=== PATIENT | female | born 1980 | race African-American/Black ===

== ENCOUNTER → 2023-10-17 09:11 | Outpatient (REF) | payer OTHER, SELFPAY | LOC: HWWDC 09:11 | PROVIDERS: ATTENDING PHYSICIAN Nurse Practitioner | DX: Z12.31 Encounter for screening mammogram for malignant neoplasm of breast (principal) | CPT/HCPCS: 77063; 77067 ==

== ENCOUNTER → 2023-11-19 13:10 | Outpatient (REF) | payer OTHER, SELFPAY | LOC: WDC 13:10 | PROVIDERS: ATTENDING PHYSICIAN Nurse Practitioner | DX: R92.333 Mammographic heterogeneous density, bilateral breasts (principal) | CPT/HCPCS: 76641 ==

== ENCOUNTER 2024-04-05 16:01 | Emergency (ER) | payer OTHER, SELFPAY ==
[2024-04-05 16:17] VITALS: BP 153/71
[2024-04-05 16:41] LABS: Urine Albumin Negative (Neg - Trace); Urine Bilirubin Negative (Negative); Urine Character Clear (Clear); Urine Color Yellow; Urine Glucose Negative (Negative); Urine Ketone Negative (Negative); Urine Leukocyte Negative (Negative); Urine Nitrite Negative (Negative); Urine Occult Blood Negative (Negative); Urine Specific Gravity 1.005 (<1.030); Urine Urobilinogen Negative (Neg - 1+)
[2024-04-05 16:46] LABS: % Basophils 0.5 % (0-2); % Eosinophils 2.9 % (0-6); % Immature Granulocytes 0.2 % (0-0.5); % Lymphocytes 28.8 % (20.5-51.1); % Monocytes 6.4 % (1.7-9.3); % Neutrophils 61.2 % (42.2-75.2); Absolute Eosinophils 0.2 10^3/uL (0-0.7); Absolute Lymphocytes 1.7 10^3/uL (1.2-3.4); Absolute Monocytes 0.4 10^3/uL (0.1-0.6); Absolute Neutrophils 3.5 10^3/uL (1.4-6.5); Hematocrit 37.2 % (37.0-47.0); Hemoglobin 12.5 g/dL (12.0-16.0); Mean Corp Hgb Conc. 33.6 g/dL (33.0-37.0); Mean Corpuscular Hgb 29.3 pg (27.0-31.0); Mean Corpuscular Volume 87.1 fL (81.0-99.0); Mean Platelet Volume 9.6 fL (7.4-10.4); Nucleated Red Blood Cells % 0 %; Platelet Count 257 10^3/uL (130-400); Red Blood Cell Count 4.27 10^6/uL (4.20-5.40); Red Cell Dist. Width 12.7 % (11.5-14.5); White Blood Cell Count 5.8 10^3/uL (4.8-10.8)
[2024-04-05 16:58] LABS: HCG, Serum Qualitative Screen Negative
[2024-04-05 17:00] LABS: ALT (SGPT) 15 U/L (0-35); AST (SGOT) 24 U/L (14-36); Albumin 4.7 g/dl (3.5-5.0); Alkaline Phosphatase 51 U/L (38-126); Blood Urea Nitrogen 10 mg/dl (7-17); Calcium 9.7 mg/dl (8.4-10.2); Carbon Dioxide 23 mmol/L (22-30); Chloride 105 mmol/L (98-107); Glucose 93 mg/dl (70-99); Potassium 4.3 mmol/L (3.5-5.1); Sodium 141 mmol/L (135-145); Total Bilirubin 0.7 mg/dl (0.2-1.3); Total Protein 7.5 g/dl (6.3-8.2); eGFR > 60.00
[2024-04-05 17:01] LABS: Lipase 293 U/L (23-300)
--- NOTE | 2024-04-05 18:49 | ED.GENMED ---
History of Present Illness
General
Chief Complaint: Abdominal Pain
Source: patient
Exam Limitations: none
Time Seen by Provider: 04/05/24 18:05
History of Present Illness
History of Present Illness:
This is a 43 year old female that comes in with c/o right sided abd pain. States that this started about 10:30am and she thought it was gas. States that the pain continued to get worse throughout the day. States that she tried a heating pad and this
didn't help. Then she tried crackers with peanut better and this didn't help. States that the pain is just above her navel and over to the right. States that she has not appetite. Denies any fever, chills, chest pain, SOB, nausea, vomiting,
diarrhea, headache, dizziness, urinary burning.
Past History
Past History
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
ED Past Surgical History: None
Social History
Tobacco: Non-smoker
Alcohol: Occasional
Personal:
Living: with family
Review of Systems
Review of Systems
All Other Systems: ROS reviewed and negative except as documented in HPI and ROS
Constitutional: Reports no symptoms; Denies fever or chills
EENT: Reports no symptoms
Respiratory: Reports no symptoms; Denies cough or trouble breathing
Cardiac: Reports no symptoms; Denies chest pain
ABD/GI: Reports abdominal pain; Denies nausea, vomiting or diarrhea
: Reports no symptoms; Denies dysuria, frequency or urgency
Musculoskeletal: Reports no symptoms
Skin: Reports no symptoms
Neurological: Reports no symptoms; Denies dizzy or headache
Psychiatric: Reports no symptoms
Phy Exam
General Physical Exam
General Presentation: mild distress
General age: appears stated age
General Skin: warm and dry
General Habitus: normal
General Mental: alert
General Hydration: dry mucous membranes
ENT Exam
ENT Exam: TM's normal, pharynx normal and neck supple
Eye Exam
Eye Exam: EOMI
Cardiovascular Exam
Cardiovascular Exam: regular rate/rhythm, no edema, no murmur and normal peripheral pulses
Pulmonary Exam
Pulmonary Exam: lungs clear, no respiratory distress, no rales, chest non tender, no crackles, no rhonchi, no wheezing and no cough
Gastrointestinal Exam
Gastrointestinal Exam: normal bowel sounds, soft, no organomegaly, no pulsatile mass, non distended and tender (right lower abd tenderness with palpation)
Musculoskeletal Exam
Musculoskeletal Exam: full ROM and no edema
Skin Exam
Skin Exam: normal color, warm/dry, no rash and no petechia
Psychiatric Exam
Psychiatric Exam: normal mood/affect
Course
Orders/Labs/Results
Orders:
Orders
04/05/24 16:21
Test Result ONCE
04/05/24 16:29
Complete Blood Count/With Diff Urgent
Comprehensive Metabolic Panel Urgent
HCG, Serum Qualitative Screen Urgent
Lipase Urgent
04/05/24 16:31
Urinalysis Reflex To Culture Urgent
Date Specimen was Collected: 04/05/24
Time Specimen was Collected: 16:21
04/05/24 18:48
CT Abd/pel W Iv And Oral Contr Urgent
Comment:
Reason For Exam: rIGHT LOWER ABD PAIN
0.9% Sodium Chloride 1000 ml [Nss] 1,000 ml IV BOLUS
Iohexol [Omnipaque] See Protocol PO NOW STA
Ketorolac [Toradol] 30 mg IV NOW STA
04/05/24 18:53
US Pelvis Only (non-obstetric) Urgent
Comment:
Reason For Exam: Right lower abd pain
04/05/24 18:[address] Non Medication Order As Directed
Physician Order:
Above order entered?: Yes
04/05/24 23:29
Pantoprazole [Protonix IV] 40 mg IV NOW STA
Sucralfate Suspension [Carafate Suspension] 1 gm PO NOW STA
04/05/24 16:29
04/05/24 16:29
Labs unremarkable. HCG negative. Urine negative for infection. Lipase normal at 293
Vital Signs
Initial and Last Documented VS:
Initial Vital Signs
Temp Pulse Resp BP Pulse Ox
98.5 F 78 16 153/71 98
04/05/24 16:17 04/05/24 16:17 04/05/24 16:17 04/05/24 16:17 04/05/24 16:17
Last Documented Vital Signs
Temp Pulse Resp BP Pulse Ox
98.5 F 59 18 129/69 98
04/05/24 16:17 04/05/24 22:44 04/05/24 22:44 04/05/24 22:44 04/05/24 16:17
MDM/Problems Addressed
Differential Diagnosis Includes:
ruptured ovarian cyst. Ovarian torsion. Appendicitis.
MDM/Problems Addressed:
This is a 43 year old female that comes in with c/o right sided abd pain that started about 10:30am and has continued to get worse.
Will check labs, US pelvic and CT scan to r/o appendicitis.
Back into see patient. Explained that her blood work is normal along with her Ultrasound. CT shows that there is a Gastritis in the bottom of the stomach. Will place patient on Protonix and Carafate. Patient to follow up with the family doctor.
Return with any concerns.
Chronic conditions affecting care:
History of ovarian cyst
Acute Exacerbation and/or Progression of Chronic Illness:
NA
*Radiology
Radiology exam reviewed: radiology read reviewed (US-NO sonographic evidence for abnormality in the uterus or ovaries. CT-Small hiatal hernia. Moderate circumferential wall thickening in the gastric antrum suspicious for gastritis. Small number of
hepatic cysts. )
*Pulse Oximetry
Patient hypoxic: no
*EKG
Interpreted by ED Provider?: NA
Rate: EKG- N/A
*Director Of Nursing Interpretation
Rate: Director Of Nursing- N/A
*Critical Care Note
Total Time (30-74mins, 75-104mins- exclusive of procedures): Not Applicable
ED Attending Note
-
Portions of this chart may have been created with voice recognition software.� Occasional wrong word or��sound alike� substitutions may have occurred due to the inherent limitations of voice recognition software.
Discharge Plan
Departure
Patient Disposition: Home (Routine Discharge)
Date of Disposition: 04/05/24
Time of Disposition: 23:44
Patient with high blood pressure during this ER visit?: No
Condition: Good
Covid-19: Not Applicable
Discharge Problem:
Gastritis
Instructions: Gastritis (DC)
Prescriptions:
New
sucralfate [Carafate] 1 gram tablet
1 g PO ACHS Qty: 40 0RF
Rx Instructions:
Dissolve in 2tsp of water and drink. 30min-1hour before meals and HS
pantoprazole [Protonix] 40 mg tablet,delayed release (DR/EC)
40 mg PO DAILY Qty: 30 0RF
Referrals:
Lucrecia Tuttle, [Family Provider] - Call in 1-3 days for appt
Activity Restrictions/Additional Instructions:
As discussed, your blood work is normal along with your ultrasound. Your CT scan shows that you have gastritis at the base of the stomach. You have had 2 prescriptions sent to your Pharmacy. The first is Protonix which you take once daily. The
second is for Carafate which you will dissolve in 2 tsp of water and drink. Please take this 30min to 1 hour before meals and at bedtime. Follow up with the family doctor for recheck. IF YOU HAVE INCREASED OR CHANGING PAIN, OR YOU HAVE ANY OTHER
CONCERNS PLEASE RETUR TO THE EMERGENCY ROOM.
Interventions
Interventions:
*Risk Screen - Suicide Last Done: 04/05/24 16:17
*General Assessment Last Done: 04/05/24 21:04
*Neglect/Abuse Screening Last Done: 04/05/24 16:17
ME-[id number]-[id number] Assessment Last Done: 04/05/24 21:04
Discharge Date and Time
Print Language: TELUGU
[2024-04-05] MEDS: TORADOL 30 MG IV (19:05)
[2024-04-05] MEDS: OMNIPAQUE 50 ML PO (19:05)
[2024-04-05] MEDS: NSS 1000 IV (19:10)
[2024-04-05 21:07] VITALS: BP 137/77
[2024-04-05 22:44] VITALS: BP 129/69
[2024-04-05] MEDS: CARAFATE SUSPENSION 1 GM PO (23:38)
[2024-04-05] MEDS: PROTONIX IV 40 MG IV (23:42)
[2024-04-05 23:54] VITALS: BP 120/69
== END 2024-04-05 23:58 | disposition home or self-care (01) ==
LOC: EMR 16:01
PROVIDERS: Emergency Medicine; EMERGENCY PHYSICIAN Emergency Medicine; FAMILY PHYSICIAN Family Medicine
DX: K29.70 Gastritis, unspecified, without bleeding (principal); K44.9 Diaphragmatic hernia without obstruction or gangrene; K76.89 Other specified diseases of liver
CPT/HCPCS: 96374; 96375; 96361; 99284; 74177; 76856; 80053; 81003; 83690; 84703; 85025; Q9967